=== PATIENT | male | born 1945 | race Caucasian/White ===

== ENCOUNTER 2018-02-26 12:29 | Inpatient (IN) ==
--- NOTE | 2018-02-26 12:37 | Emergency Department Note ---
Disposition Clinical Impression: TIA (transient ischemic attack) Disposition: Admitted As Inpatient Condition: Fair Time of Disposition: 15:48 General Adult HPI - General Chief complaint: ED General Medical Stated complaint: Left hand numbness Time Seen by Provider: 02/26/18 12:33 Source: patient, EMS Mode of arrival: EMS Limitations: no limitations Nursing Notes Reviewed: Yes Vital Signs Reviewed: Yes - History of Present Illness HPI Narrative: Patient states that his symptoms began around 9:30 this morning. He states he was talking to his neighbor on the phone and expressive sudden onset of left arm weakness. States he dropped the phone. He went to the [facility] who sent him here. Patient states his symptoms are resolved before he arrives here. He feels back to normal. He states he had a stroke a few years ago and was evaluated here for that. He attributes it to stress. He denies any facial numbness or droop. No leg symptoms. - Related Data Home Medications Medication Instructions Recorded Confirmed Gabapentin [Neurontin] 600 mg PO HS 03/18/16 02/26/18 Lisinopril [Zestril] 10 mg PO DAILY 03/18/16 02/26/18 Acetaminophen/Diphenhydramine 1 tab PO HS PRN 02/26/18 02/26/18 [Percogesic 325-12.5 mg Tablet] Amino Acids/Protein Supplement 1 tab PO DAILY 02/26/18 02/26/18 [Protein 2,000 mg Tablet] Aspirin Enteric Coated [Aspirin EC] 81 mg PO DAILY 02/26/18 02/26/18 Cholecalciferol (D-3) [Vitamin D] 2,000 unit PO DAILY 02/26/18 02/26/18 Cranberry 500 mg PO DAILY 02/26/18 02/26/18 Garlic [Odorless Garlic] 1,250 mg PO DAILY 02/26/18 02/26/18 [place]-3S/Dha/Epa/Fish Oil [Fish 1 cap PO DAILY 02/26/18 02/26/18 Oil 1,200 mg Softgel] Vitamin E (Dl,Tocopheryl Acet) 100 unit PO DAILY 02/26/18 02/26/18 [Vitamin E] Allergies Allergy/AdvReac Type Severity Reaction Status Date / Time Salicylates Allergy Nausea Verified 02/26/18 13:51 All systems ED: reviewed and negative except as stated. Constitutional: Denies: fever Cardiovascular: Denies: chest pain Respiratory: Denies: dyspnea Gastrointestinal: Denies: abdominal pain, vomiting, diarrhea Past Medical History - Past Medical History Attestation: Yes The following information was validated with the patient. Source: patient Medical history: Reports: hyperlipidemia, hypertension, other (west nile encephalitis) Psychiatric history: Reports: anxiety - Social History Smoking Status: Never smoker Smokeless Tobacco Status: No Alcohol use: Reports: none Drug use: Reports: none Physical Exam - General Limitations: no limitations General appearance: alert, in no apparent distress - Head Head exam: atraumatic - Eye Eye exam: Present: normal appearance - Chest Chest inspection: Present: normal inspection - Respiratory Respiratory exam: Present: normal lung sounds bilaterally - Cardiovascular Cardiovascular exam: Present: regular rate, normal rhythm, normal heart sounds - Abdominal Exam Abdominal exam: Present: soft, Non-Tender - Neurological Exam Neurological exam: Present: alert, oriented X3, CN II-XII intact - Psychiatric Psychiatric exam: Present: normal affect, normal mood - Skin Skin exam: Present: warm, dry Course Course Narrative: The patient is back to his neurologic baseline. His NIH is 0. No stroke alert was called. We will perform stroke workup and likely admit. - Reevaluation(s) Reevaluation #1: Patient reevaluated. Patientand sensory discrepancy on my evaluation. NIH 0. We will observe. Time: 15:16 - Consultations Consultation #1: Dr Rod accepts Time: 15:48 Vital Signs Temperature 98 F 02/26/18 12:31 Pulse Rate 65 02/26/18 12:31 Respiratory Rate 16 02/26/18 12:31 Blood Pressure 189/103 02/26/18 12:31 O2 Sat by Pulse Oximetry 97 02/26/18 12:31 Temperature 98 F 02/26/18 12:31 Pulse Rate 119 02/26/18 14:52 Respiratory Rate 18 02/26/18 14:52 Blood Pressure 161/87 02/26/18 14:52 O2 Sat by Pulse Oximetry 99 02/26/18 14:52 Oxygen Delivery Oxygen Delivery Room Air Medical Decision Making - MDM Narrative Medical decision making narrative: Patient with TIA. Symptoms currently resolved. Admitted to medicine. Patient TPA candidate secondary to his symptoms being gone at this time. - Medical Records Medical records reviewed: Yes I reviewed the patient's medical records. - Lab Data Lab results reviewed: Yes I reviewed the patient's lab results. Result diagrams: 02/26/18 13:27 02/26/18 13:27 Lab Results 02/26/18 02/26/18 02/26/18 Range/Units 13:27 13:27 13:27 WBC 6.1 (4.3-11.1) K/mcL RBC 5.13 (4.19-5.50) M/mcL Hgb 15.0 (12.9-16.9) g/dL Hct 46.2 (37.5-50.1) % MCV 90.1 (83.0-100.0) fL MCH 29.2 (28.0-33.3) pg MCHC 32.5 (31.6-35.5) g/dL RDW 13.6 (11.5-14.5) % Plt Count 166 (140-400) K/mcL MPV 11.0 (9.4-12.4) fL Immature Gran % 0.3 (0-4) % Seg Neutrophils % 51.9 % Lymphocytes % 36.4 % Monocytes % 8.8 % Eosinophils % 1.8 % Basophils % 0.8 % Neutrophils # 3.2 (1.6-8.9) K/mcL Lymphocytes # 2.2 (0.6-4.6) K/mcL Monocytes # 0.5 (0.0-1.3) K/mcL Eosinophils # 0.1 (0.0-0.6) K/mcL Basophils # 0.1 (0.0-0.2) K/mcL PT 11.2 (9.4-12.1) Seconds INR 1.0 APTT 29.7 (26.0-36.0) Seconds Sodium 142 (136-145) mEq/L Potassium 4.4 (3.5-5.1) mEq/L Chloride 105 (98-107) mEq/L Carbon Dioxide 30 H (23-29) mEq/L BUN 12 (8-23) mg/dL Creatinine 1.06 (0.70-1.30) mg/dL Est GFR ( Amer) > 60 (> 60) Est GFR (Non-Af Amer) > 60 (> 60) BUN/Creatinine Ratio 11 (6-26) Glucose 98 (70-105) mg/dL Calculated Osmolality 294 (280-300) Calcium 9.1 (8.6-10.3) mg/dL Troponin I < 0.03 (< 0.04) ng/mL - EKG Data EKG #1 EKG attestation: Yes I reviewed and interpreted this EKG. EKG results narrative: Normal sinus at 62. No ST segment changes or T-wave inversions. Normal QRS. Normal axis. Critical Care Time Critical Care Time: No NIH Stroke Scale - Level of Consciousness LOC: Alert - LOC Questions LOC Questions: Answers both correctly - LOC Commands LOC Commands: Performs both correctly - Best Gaze Best Gaze: Normal - Visual Visual: No visual loss - Facial Palsy Facial Palsy: Normal - Motor Arms Motor Arm-Left: No drift for 10 seconds Motor Arm-Right: No drift for 10 seconds - Motor Legs Motor Leg-Left: No drift for 5 seconds Motor Leg-Right: No drift for 5 seconds - Limb Ataxia Limb Ataxia: Absent of affected limb too weak to perform exam - Sensory Sensory: Normal - Best Language Best Language: No aphasia - Dysarthria Dysarthria: Normal - Extinction and Inattention Extinction and Inattention: Normal - NIHSS Total Score NIHSS Total Score: 0
--- NOTE | 2018-02-26 13:19 | Emergency Department Note ---
Disposition Clinical Impression: TIA (transient ischemic attack) Qualifiers: Transient cerebral ischemia type: unspecified Qualified Code(s): G45.9 - Transient cerebral ischemic attack, unspecified Disposition: Admitted As Inpatient Condition: Fair General Adult HPI - General Chief complaint: ED General Medical Stated complaint: Left hand numbness Time Seen by Provider: 02/26/18 12:33 Source: patient, EMS Mode of arrival: EMS Limitations: no limitations Nursing Notes Reviewed: Yes Vital Signs Reviewed: Yes - History of Present Illness HPI Narrative: 73-year-old male with a history of CVA in the past with no residual symptoms presents for evaluation of left hand numbness. Patient states symptom onset was around 9 or 9:30 this morning. Lasted 2 hours. Patient states that he felt his entire left arm numb and subsequently dropped his coffee. Patient also noted a generalized weakness at that time. States he had a history of similar symptoms of the right arm a year ago. Patient denies any significant prodromal symptoms. No chest pain or shortness of breath. No abdominal pain. No nausea vomiting or diaphoresis. Patient states that he subsequently went to the [facility] who transferred him here. Patient's symptoms resolved by the time he was seen at the [facility]. Patient has not had any blood thinners. Pain Scale: 0 - Related Data Home Medications Medication Instructions Recorded Confirmed Gabapentin [Neurontin] 600 mg PO HS 03/18/16 02/26/18 Lisinopril [Zestril] 10 mg PO DAILY 03/18/16 02/26/18 Acetaminophen/Diphenhydramine 1 tab PO HS PRN 02/26/18 02/26/18 [Percogesic 325-12.5 mg Tablet] Amino Acids/Protein Supplement 1 tab PO DAILY 02/26/18 02/26/18 [Protein 2,000 mg Tablet] Aspirin Enteric Coated [Aspirin EC] 81 mg PO DAILY 02/26/18 02/26/18 Cholecalciferol (D-3) [Vitamin D] 2,000 unit PO DAILY 02/26/18 02/26/18 Cranberry 500 mg PO DAILY 02/26/18 02/26/18 Garlic [Odorless Garlic] 1,250 mg PO DAILY 02/26/18 02/26/18 [place]-3S/Dha/Epa/Fish Oil [Fish 1 cap PO DAILY 02/26/18 02/26/18 Oil 1,200 mg Softgel] Vitamin E (Dl,Tocopheryl Acet) 100 unit PO DAILY 02/26/18 02/26/18 [Vitamin E] Allergies Allergy/AdvReac Type Severity Reaction Status Date / Time Salicylates Allergy Nausea Verified 02/26/18 13:51 Constitutional: Denies: fever Cardiovascular: Denies: chest pain Respiratory: Denies: dyspnea Gastrointestinal: Denies: abdominal pain, vomiting, diarrhea Past Medical History - Past Medical History Source: patient Medical history: Reports: hyperlipidemia, hypertension, other (west nile encephalitis) Psychiatric history: Reports: anxiety - Social History Smoking Status: Never smoker Smokeless Tobacco Status: No Alcohol use: Reports: none Drug use: Reports: none Physical Exam - General Limitations: no limitations General appearance: alert, in no apparent distress - Head Head exam: atraumatic, normocephalic, normal inspection - Eye Eye exam: Present: normal appearance, PERRL, EOMI. Absent: miosis, mydriasis - ENT ENT exam: normal exam, normal oropharynx, mucous membranes moist - Neck Neck exam: Present: normal inspection - Chest Chest inspection: Present: normal inspection, symmetric chest wall rise - Respiratory Respiratory exam: Present: normal lung sounds bilaterally. Absent: respiratory distress - Cardiovascular Cardiovascular exam: Present: regular rate, normal rhythm. Absent: systolic murmur - Abdominal Exam Abdominal exam: Present: soft - Extremities Exam Extremities exam: Present: normal inspection. Absent: pedal edema - Back Exam Back exam: Present: normal inspection - Neurological Exam Neurological exam: Present: alert, oriented X3, CN II-XII intact - Expanded Neurological Exam Patient oriented to: Present: person, place, time Speech: Present: fluid speech Cranial nerves: EOM function (II, III, IV, ): Normal, facial sensation (V): Normal, facial palsy (VII): Normal, spinal accessory function (XI): Normal, tongue deviation (XII): Normal Motor strength - LUE: 5/5 Motor strength - RUE: 5/5 Motor strength - LLE: 5/5 Motor strength - RLE: 5/5 Sensory exam upper extremity: light touch: Normal Sensory exam lower extremity: light touch: Normal Coma Scale Eye Opening: Spontaneous Coma Scale Motor Response: Obeys Commands Coma Scale Verbal Response: Oriented Coma Scale Total: 15 - Skin Skin exam: Present: warm, dry, intact, normal color Course Course Narrative: Patient was seen by the prior provider. - Reevaluation(s) Reevaluation #1: Patient seen and examined. Patient denies any needs at this time. Patient's NIH score of 0. Patient's resting comfortably. No needs at this time. Time: 13:19 Vital Signs Temperature 98 F 02/26/18 12:31 Pulse Rate 65 02/26/18 12:31 Respiratory Rate 16 02/26/18 12:31 Blood Pressure 189/103 02/26/18 12:31 O2 Sat by Pulse Oximetry 97 02/26/18 12:31 Temperature 98.7 F 02/26/18 18:50 Pulse Rate 65 02/26/18 18:50 Respiratory Rate 16 02/26/18 18:50 Blood Pressure 160/79 02/26/18 18:50 O2 Sat by Pulse Oximetry 97 02/26/18 18:50 Oxygen Delivery Oxygen Delivery Room Air Medical Decision Making - Lab Data Result diagrams: 02/26/18 13:27 02/26/18 13:27 Lab Results 02/26/18 02/26/18 02/26/18 Range/Units 12:40 13:27 13:27 WBC 6.1 (4.3-11.1) K/mcL RBC 5.13 (4.19-5.50) M/mcL Hgb 15.0 (12.9-16.9) g/dL Hct 46.2 (37.5-50.1) % MCV 90.1 (83.0-100.0) fL MCH 29.2 (28.0-33.3) pg MCHC 32.5 (31.6-35.5) g/dL RDW 13.6 (11.5-14.5) % Plt Count 166 (140-400) K/mcL MPV 11.0 (9.4-12.4) fL Immature Gran % 0.3 (0-4) % Seg Neutrophils % 51.9 % Lymphocytes % 36.4 % Monocytes % 8.8 % Eosinophils % 1.8 % Basophils % 0.8 % Neutrophils # 3.2 (1.6-8.9) K/mcL Lymphocytes # 2.2 (0.6-4.6) K/mcL Monocytes # 0.5 (0.0-1.3) K/mcL Eosinophils # 0.1 (0.0-0.6) K/mcL Basophils # 0.1 (0.0-0.2) K/mcL PT 11.2 (9.4-12.1) Seconds INR 1.0 APTT 29.7 (26.0-36.0) Seconds Sodium (136-145) mEq/L Potassium (3.5-5.1) mEq/L Chloride (98-107) mEq/L Carbon Dioxide (23-29) mEq/L BUN (8-23) mg/dL Creatinine (0.70-1.30) mg/dL Est GFR ( Amer) (> 60) Est GFR (Non-Af Amer) (> 60) BUN/Creatinine Ratio (6-26) Glucose (70-105) mg/dL POC Glucose 86 (70-99) mg/dL Calculated Osmolality (280-300) Calcium (8.6-10.3) mg/dL Troponin I (< 0.04) ng/mL 02/26/18 Range/Units 13:27 WBC (4.3-11.1) K/mcL RBC (4.19-5.50) M/mcL Hgb (12.9-16.9) g/dL Hct (37.5-50.1) % MCV (83.0-100.0) fL MCH (28.0-33.3) pg MCHC (31.6-35.5) g/dL RDW (11.5-14.5) % Plt Count (140-400) K/mcL MPV (9.4-12.4) fL Immature Gran % (0-4) % Seg Neutrophils % % Lymphocytes % % Monocytes % % Eosinophils % % Basophils % % Neutrophils # (1.6-8.9) K/mcL Lymphocytes # (0.6-4.6) K/mcL Monocytes # (0.0-1.3) K/mcL Eosinophils # (0.0-0.6) K/mcL Basophils # (0.0-0.2) K/mcL PT (9.4-12.1) Seconds INR APTT (26.0-36.0) Seconds Sodium 142 (136-145) mEq/L Potassium 4.4 (3.5-5.1) mEq/L Chloride 105 (98-107) mEq/L Carbon Dioxide 30 H (23-29) mEq/L BUN 12 (8-23) mg/dL Creatinine 1.06 (0.70-1.30) mg/dL Est GFR ( Amer) > 60 (> 60) Est GFR (Non-Af Amer) > 60 (> 60) BUN/Creatinine Ratio 11 (6-26) Glucose 98 (70-105) mg/dL POC Glucose (70-99) mg/dL Calculated Osmolality 294 (280-300) Calcium 9.1 (8.6-10.3) mg/dL Troponin I < 0.03 (< 0.04) ng/mL Attestation Statement - Attestation Attestation: I examined this patient and my medical decision-making was reviewed with the Resident Physician. I agree with the documented findings, disposition and treatment plan as described except to the extent set forth below.
[2018-02-26 14:07] LABS: Basophils # 0.1 K/mcL (0.0-0.2); Basophils % 0.8 %; Eosinophils # 0.1 K/mcL (0.0-0.6); Eosinophils % 1.8 %; Hematocrit 46.2 % (37.5-50.1); Immature Granulocytes % 0.3 % (0-4); Lymphocytes # 2.2 K/mcL (0.6-4.6); Lymphocytes % 36.4 %; Mean Corpuscular HGB Conc 32.5 g/dL (31.6-35.5); Mean Corpuscular Hemoglobin 29.2 pg (28.0-33.3); Mean Corpuscular Volume 90.1 fL (83.0-100.0); Monocytes # 0.5 K/mcL (0.0-1.3); Monocytes % 8.8 %; Neutrophils # 3.2 K/mcL (1.6-8.9); Platelet Count 166 K/mcL (140-400); Red Blood Count 5.13 M/mcL (4.19-5.50); Red Cell Distribution Width 13.6 % (11.5-14.5); Segmented Neutrophils % 51.9 %
[2018-02-26 14:14] LABS: Prothrombin Time 11.2 Seconds (9.4-12.1)
[2018-02-26 14:16] LABS: Activated Partial Thrombo Time 29.7 Seconds (26.0-36.0)
[2018-02-26 14:30] LABS: BUN/Creatinine Ratio 11 (6-26); Blood Urea Nitrogen 12 mg/dL (8-23); Calcium 9.1 mg/dL (8.6-10.3); Carbon Dioxide 30 mEq/L (23-29); Chloride 105 mEq/L (98-107); Glucose 98 mg/dL (70-105); Osmolality,Calculated 294 (280-300); Potassium 4.4 mEq/L (3.5-5.1); Sodium 142 mEq/L (136-145); eGFR For African Americans > 60 (> 60); eGFR For Non-African Americans > 60 (> 60)
[2018-02-26 14:31] LABS: Troponin I < 0.03 ng/mL (< 0.04)
[2018-02-26] MEDS ORDERED: Naloxone 0.4 MG/ML INJ IVP PRN (15:50)
--- NOTE | 2018-02-26 16:03 | Internal Med History&Physical ---
Date of Encounter: 02/27/18 Time of Encounter: 15:59 Internal Medicine - H&P: HPI Chief complaint: TIA to rule out CVA Admitted From: Emergency Dept Plans for Post Hospital Care: Home History of present illness: PCP: BRENDA Vaca PMH: Hypertension, Previous CVA History of present medical illness: Patient noted that this morning around 920 and has a weakness on the left sideed upper/lower extremity. Patient claims that for few minutes he was extremely dizzy and was unable to keep the balance. Patient had a occasional slurred speech. Patient denies chest pain, nausea, vomiting, abdominal pain and diarrhea. Patient went to emergency room at the [facility] in [place]. Patient was transferred to this hospital from [facility] for further evaluation and management. Workup in the emergency room: Patient was evaluated in the emergency room. Baseline labs were drawn. CT head: Negative for any acute CVA/ischemia/bleed. Chest x-ray: Negative for any acute cardiac pulmonary process. Reason for admission: TIA to rule out CVA. Family history: Noncontributory 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) Psychiatric history: anxiety - Social History Smoking Status: Never smoker Smokeless Tobacco Status: No Alcohol use: none Drug use: none Internal Medicine - H&P: Meds Gabapentin [Neurontin] 600 mg PO HS 03/18/16 [History] Lisinopril [Zestril] 10 mg PO DAILY 03/18/16 [History] Acetaminophen/Diphenhydramine [Percogesic 325-12.5 mg Tablet] 1 tab PO HS PRN [History] Amino Acids/Protein Supplement [Protein 2,000 mg Tablet] 1 tab PO DAILY [History] Aspirin Enteric Coated [Aspirin EC] 81 mg PO DAILY 02/26/18 [History] Cholecalciferol (D-3) [Vitamin D] 2,000 unit PO DAILY 02/26/18 [History] Cranberry 500 mg PO DAILY 02/26/18 [History] Garlic [Odorless Garlic] 1,250 mg PO DAILY 02/26/18 [History] [place]-3S/Dha/Epa/Fish Oil [Fish Oil 1,200 mg Softgel] 1 cap PO DAILY 02/26/18 [ History] Vitamin E (Dl,Tocopheryl Acet) [Vitamin E] 100 unit PO DAILY 02/26/18 [History] 3 Allergy/AdvReac Type Severity Reaction Status Date / Time Salicylates Allergy Nausea Verified 02/26/18 13:51 All Systems PM: A 10-system review of systems was performed and is negative for pertinent findings except as documented above in the HPI. - Constitutional Constitutional: no chills, no fever(s), no night sweats - EENT Eyes: no change in vision, no discharge, no pain, no photophobia Ears: no ear discharge, no ear pain, no tinnitus Nose, mouth and throat: no dysphagia, no nasal discharge, no neck pain, no sore throat - Cardiovascular Cardiovascular ROS IM: no chest pain, no diaphoresis, no dyspnea, no lightheadedness, no palpitations, no syncope - Respiratory Respiratory: no cough, no dyspnea, no wheezing, no excessive phlegm production - Gastrointestinal Gastrointestinal: no abdominal pain, no diarrhea, no hematemesis, no hematochezia, no melena, no nausea, no vomiting - Musculoskeletal Musculoskeletal ROS IM: no numbness, no tingling - Integumentary Integumentary IM: no rash, no unusual bruising - Neurological Neurological ROS: dizziness, focal weakness, numbness, no confusion, no convulsions, no tingling, no tremor(s) - Hematologic/Lymphatic Hematologic/Lymphatic: no easy bruising - Constitutional Vitals: Temp Pulse Resp BP Pulse Ox 98 F 119 18 161/87 99 02/26/18 12:31 02/26/18 14:52 02/26/18 14:52 02/26/18 14:52 02/26/18 14:52 General appearance: Present: A&O X 3, pleasant, no acute distress, answers questions appropriately - Head Head exam: Present: atraumatic, normocephalic - Eye Eye exam: Present: PERRL, conjuntiva pink, sclera anicteric Pupils: Present: PERRL - Neck Neck exam general surgery: Present: supple, trachea midline. Absent: lymphadenopathy - Respiratory Respiratory exam: Present: CTAB. Absent: accessory muscle use, rales, rhonchi, wheezes - Cardiovascular Cardiovascular exam: Present: RRR, +S1, +S2. Absent: diastolic murmur, gallop, rubs, systolic murmur - GI/Abdominal GI/Abdominal exam: Present: normal bowel sounds, soft, no peritoneal signs. Absent: distended, tenderness - Extremities Exam Extremities exam: Present: warm, radial pulses palpable and symmetrical. Absent : calf tenderness, cyanotic, pedal edema - Neurological Exam Neurological exam: Present: CN II-XII intact, oriented X3, no focal deficits. Absent: pronater drift, facial droop, speech deficit - Skin Skin exam: Present: dry, intact Internal Med - H&P Results - Labs CBC & Chem 7: 02/27/18 06:02 02/27/18 06:02 - Assessment and plan (1) TIA (transient ischemic attack) Current Visit: Yes Status: Acute Assessment and plan: 73/male Multiple risk factors. Admitted with left-sided weakness of breath upper and lower extremity. Patient had a slurred speech. Patient was evaluated by Lorenzo GUTIERREZ. Next line transferred to the hospital for further management. Assessment: TIA to rule out CVA. Hypertension. Plan: Admit as inpatient. Monitoring as per [place]. Aspirin/statin. Echocardiogram/ultrasound carotid. Physical therapy/occupational therapy evaluation. I personally give patient water to drink and he did not have any concern in terms of regurgitation. Close monitoring of the patient I examined this patient in the emergency room #2. Plan of care discussed with the patient. Patient verbalized understanding. Qualifiers: Transient cerebral ischemia type: unspecified Qualified Code(s): G45.9 - Transient cerebral ischemic attack, unspecified (2) Essential hypertension, benign Current Visit: No Status: Chronic Assessment and plan: Patient is known to have a essential hypertension. At this point patient's blood pressure is mildly elevated but that can be secondary to possible TIA/CVA. We will resume home medication for now. Her medication dose is due for tomorrow morning (3) DVT prophylaxis Current Visit: Yes Status: Acute Assessment and plan: Heparin Medical decision making: This patient has a moderate to severe risk of worsening in spite of being on appropriate medication/treatment due to the underlying complex medical condition. - Time Spent With Patient Total time spent is greater than 50% in coordination of care (as documented) at patient's floor/unit and/or counseling patient:
[2018-02-26] MEDS: *HR* Heparin 5,000 UNIT/ML VIAL SQ SCH ×2 (18:20→23:30)
[2018-02-26] MEDS: Gabapentin 300 MG CAPSULE PO SCH (20:10)
[2018-02-27] MEDS: Acetaminophen 325 MG TABLET PO PRN ×2 (00:42→22:21)
[2018-02-27 06:40] LABS: Basophils # 0.1 K/mcL (0.0-0.2); Basophils % 0.8 %; Eosinophils # 0.1 K/mcL (0.0-0.6); Eosinophils % 1.9 %; Hematocrit 42.7 % (37.5-50.1); Hemoglobin 14.1 g/dL (12.9-16.9); Immature Granulocytes % 0.2 % (0-4); Lymphocytes # 2.4 K/mcL (0.6-4.6); Lymphocytes % 38.2 %; Mean Corpuscular Hemoglobin 29.1 pg (28.0-33.3); Mean Platelet Volume 10.8 fL (9.4-12.4); Monocytes # 0.6 K/mcL (0.0-1.3); Monocytes % 8.8 %; Neutrophils # 3.1 K/mcL (1.6-8.9); Platelet Count 153 K/mcL (140-400); Red Blood Count 4.85 M/mcL (4.19-5.50); Red Cell Distribution Width 13.9 % (11.5-14.5); Segmented Neutrophils % 50.1 %
[2018-02-27 06:43] LABS: INR 1.1; Prothrombin Time 11.9 Seconds (9.4-12.1)
[2018-02-27 06:46] LABS: Activated Partial Thrombo Time 29.2 Seconds (26.0-36.0)
[2018-02-27 06:55] LABS: Troponin I < 0.03 ng/mL (< 0.04)
[2018-02-27 06:56] LABS: Alanine Aminotransferase 7 Units/L (7-52); Albumin 3.8 g/dL (3.5-5.7); Albumin/Globulin Ratio 1.8 (1.1-2.2); Alkaline Phosphatase 47 Units/L (34-104); Aspartate Amino Transferase 10 Units/L (13-39); BUN/Creatinine Ratio 14 (6-26); Bilirubin,Total 0.8 mg/dL (0.3-1.0); Blood Urea Nitrogen 15 mg/dL (8-23); Calcium 8.9 mg/dL (8.6-10.3); Carbon Dioxide 27 mEq/L (23-29); Chloride 108 mEq/L (98-107); Chol/HDL Ratio 3.6 (0-4.9); Cholesterol 168 mg/dL (< 200); Globulin 2.1 g/dL (2.4-3.5); Glucose 90 mg/dL (70-105); HDL Cholesterol 47 mg/dL (40-59); LDL Cholesterol,Calculated 106 mg/dL (0-99); Magnesium 1.9 mg/dL (1.6-2.6); Osmolality,Calculated 294 (280-300); Phosphorous 3.3 mg/dL (2.7-4.5); Potassium 4.2 mEq/L (3.5-5.1); Sodium 142 mEq/L (136-145); Total Protein 5.9 g/dL (6.4-8.9); Triglycerides 75 mg/dL (< 150); eGFR For African Americans > 60 (> 60); eGFR For Non-African Americans > 60 (> 60)
[2018-02-27] MEDS: *HR* Heparin 5,000 UNIT/ML VIAL SQ SCH ×3 (08:19→22:24)
[2018-02-27] MEDS: Aspirin Enteric Coated 81 MG Tablet PO SCH (08:19)
[2018-02-27] MEDS: Cholecalciferol (D-3) 1,000 UNIT TABLET PO SCH (08:19)
--- NOTE | 2018-02-27 12:22 | Electrocardiograph Report ---
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
--- NOTE | 2018-02-27 14:55 | Internal Med Progress Note ---
Date of Encounter: 02/27/18 Time of Encounter: 14:42 - Assessment and plan (1) TIA (transient ischemic attack) Current Visit: Yes Status: Acute Assessment and plan: suspected. Presented with left arm weakness which is now resolved. 02/2016 brain MRI with evidence of small petechial hemorrhage. Patient reports history of TIAs in the past. Head CT nonacute. TTE with EF 60%, no valvular dysfunction, no evidence of PFO. Bilateral carotid Dopplers with 60-79% stenosis of the right and left ICA.. Brain MRI pending. Continue home ASA, statin. Qualifiers: Transient cerebral ischemia type: unspecified Qualified Code(s): G45.9 - Transient cerebral ischemic attack, unspecified (2) Essential hypertension, benign Current Visit: No Status: Chronic Assessment and plan: per hx. BP controlled. Cont home BP medication. Monitor BP and titrate PRN (3) Carotid stenosis Current Visit: Yes Status: Acute Assessment and plan: Bilateral carotid dopplers with 60-79% stenosis on both the right and left ICA. Cont ASA, statin. Follow up with Vascular outpatient Qualifiers: Laterality: bilateral Qualified Code(s): I65.23 - Occlusion and stenosis of bilateral carotid arteries (4) DVT prophylaxis Current Visit: Yes Status: Acute Assessment and plan: Heparin - Time Spent With Patient Total time spent is greater than 50% in coordination of care (as documented) at patient's floor/unit and/or counseling patient: - Subjective Interval history: Seen and examined at bedside. Patient is new to me, information obtained from chart review and patient report. Says he is back to baseline and once to discharge home today. No further left - Constitutional Vitals: Temp Pulse Resp BP Pulse Ox 98.5 F 68 14 155/75 98 02/27/18 11:34 02/27/18 11:34 02/27/18 11:34 02/27/18 11:34 02/27/18 11:34 General appearance: Present: A&O X 3, pleasant, no acute distress, answers questions appropriately - Head Head exam: Present: atraumatic, normocephalic - Eye Eye exam: Present: PERRL, conjuntiva pink, sclera anicteric Pupils: Present: PERRL - Neck Neck exam general surgery: Present: supple, trachea midline. Absent: lymphadenopathy - Respiratory Respiratory exam: Present: CTAB. Absent: accessory muscle use, rales, rhonchi, wheezes - Cardiovascular Cardiovascular exam: Present: RRR, +S1, +S2. Absent: diastolic murmur, gallop, rubs, systolic murmur - GI/Abdominal GI/Abdominal exam: Present: normal bowel sounds, soft, no peritoneal signs. Absent: distended, tenderness - Extremities Exam Extremities exam: Present: warm, radial pulses palpable and symmetrical. Absent : calf tenderness, cyanotic, pedal edema - Neurological Exam Neurological exam: Present: CN II-XII intact, oriented X3, no focal deficits. Absent: pronater drift, facial droop, speech deficit - Skin Skin exam: Present: dry, intact Internal Medicine: Result - Labs CBC & Chem 7: 02/27/18 06:02 02/27/18 06:02 Labs: Short CBC 02/27/18 Range/Units 06:02 WBC 6.2 (4.3-11.1) K/mcL Hgb 14.1 (12.9-16.9) g/dL Hct 42.7 (37.5-50.1) % Plt Count 153 (140-400) K/mcL Neutrophils # 3.1 (1.6-8.9) K/mcL BMP 02/27/18 06:02 Sodium 142 Potassium 4.2 Chloride 108 H Carbon Dioxide 27 BUN 15 Creatinine 1.07 Glucose 90 Calcium 8.9 Cardiac Enzymes 02/26/18 02/26/18 02/27/18 Range/Units 16:55 21:41 06:02 Troponin I < 0.03 < 0.03 < 0.03 (< 0.04) ng/mL Liver Function 02/27/18 Range/Units 06:02 Total Bilirubin 0.8 (0.3-1.0) mg/dL AST 10 L (13-39) Units/L ALT 7 (7-52) Units/L Alkaline Phosphatase 47 (34-104) Units/L Albumin 3.8 (3.5-5.7) g/dL - ABG Interpretation ABG results: PT/INR, D-dimer PT 11.9 Seconds (9.4-12.1) 02/27/18 06:02 - Impressions Impressions Echocardiogram 02/27/18 15:56 Impressions: LVEF 60-65%. Mild concentric left ventricular hypertrophy. Indeterminate diastolic function. Normal right ventricular structure and function. No significant valvular dysfunction. No evidence of PFO with agitated saline contrast. Left Ventricular Wall Motion: Rest Echo Findings All wall segments showed normal motion. Findings: Study Quality * Technically adequate exam. ECG Findings * Normal sinus rhythm. Left Ventricle * LVEF 60-65%. * Mild concentric left ventricular hypertrophy. * Indeterminate diastolic function. Right Ventricle * Normal right ventricular structure and function. Left Atrium * Normal left atrial size. Right Atrium * Normal right atrial size. Mitral Valve * Normal mitral valve structure. * No mitral stenosis. * Mild mitral annular calcification * Trace mitral regurgitation. Aortic Valve * No aortic regurgitation. * Aortic valve not well visualized. * No aortic stenosis. Tricuspid Valve * Tricuspid valve not well visualized. * No tricuspid regurgitation. Pulmonic Valve * Pulmonic valve is not well visualized. * No pulmonic stenosis. * Trace pulmonic regurgitation. Pulmonary Artery * Pulmonary artery not well visualized. Aorta * Normally sized aortic root. Pericardium * There is no pericardial effusion present. Interatrial Septum * No evidence of PFO by color Doppler. * No evidence of PFO with agitated saline contrast. IVC * The IVC is not dilated. Consult Discharge Plan - Plan [facility]errals: [facility] [Primary Care Provider[facility] -
[2018-02-27] MEDS: Gabapentin 300 MG CAPSULE PO SCH (20:11)
--- NOTE | 2018-02-27 23:16 | Event Note ---
Date of Encounter: 02/27/18 Time of Encounter: 23:13 Ct of the head showed acute micro infarcts in the frontal lobe. The patient is + for CVA. Continue ASA and statin daily. Hydralazine prn added for hypertension ,
[2018-02-28] MEDS: Cholecalciferol (D-3) 1,000 UNIT TABLET PO SCH (08:39)
[2018-02-28] MEDS: *HR* Heparin 5,000 UNIT/ML VIAL SQ SCH (08:39)
[2018-02-28] MEDS: Aspirin Enteric Coated 81 MG Tablet PO SCH (08:39)
--- NOTE | 2018-02-28 10:00 | Neurology - Consult Note ---
Date of Encounter: 02/28/18 Time of Encounter: 11:22 Assessment and Plan (1) CVA (cerebral vascular accident) Current Visit: Yes Status: Acute Patient's neurological examination shows diminished strength in the left biceps , triceps (4/5) otherwise it is nonfocal, nonlateralizing. MRI shows multiple acute microinfarcts in the right frontal lobe Echocardiogram shows EF of 60-60% with no wall motion or valvular abnormalities. Absent PFO Carotid duplex shows 60-79% stenosis in bilateral internal carotid arteries as per preliminary report. Plan: Patient's CVA is likely embolic versus thromboembolic in origin. Etiology can be right internal carotid artery, cardiac. Patient will be started on Plavix. Continue aspirin and statin. We will obtain a CTA of the head and neck. If CTA shows significant stenosis in internal carotid arteries will consult vascular surgery. If CTA head and neck shows nonsignificant stenosis in the carotid arteries will obtain a GARRETT. Qualifiers: CVA mechanism: embolism Precerebral and cerebral artery: middle cerebral artery Laterality of affected vessel: right Qualified Code(s): I63.411 - Cerebral infarction due to embolism of right middle cerebral artery History of Present Illness Chief complaint: Left upper extremity weakness HPI: Mr. Richardson is a 73 year old male history of hyperlipidemia, hypertension, previous CVA presented with chief complaint of left upper extremity weakness. Patient was about to talk on the phone yesterday morning at 9:20 AM when his left upper extremity went limp. At that time he reported not having slurred speech, numbness, tingling, headache, double vision, blurry vision, difficulty in hearing, difficulty swallowing. Patient was able to get up and go to his car and drove herself to the [facility]. Due to concern of CVA patient was transferred to [facility] for further evaluation. He reports his previous CVA was in June 2017 affected his right upper extremity but he does not have any residual deficits. CT of the head was negative for bleed, acute infarct. This morning during my evaluation patient is awake, alert and oriented 3 and is able to ambulate independently, tolerating his diet. He reports he is back to normal. He does not appear to have any speech difficulty. 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) Psychiatric history: anxiety - Past Surgical History Surgical History: no surgical history - Social History Smoking Status: Never smoker Smokeless Tobacco Status: No Alcohol use: none Drug use: none - Family History Mother History Unknown: Yes Age at : 90 Cause of : elderly Medications and Allergies Gabapentin [Neurontin] 600 mg PO HS 03/18/16 [History] Lisinopril [Zestril] 10 mg PO DAILY 03/18/16 [History] Acetaminophen/Diphenhydramine [Percogesic 325-12.5 mg Tablet] 1 tab PO HS PRN [History] Amino Acids/Protein Supplement [Protein 2,000 mg Tablet] 1 tab PO DAILY [History] Aspirin Enteric Coated [Aspirin EC] 81 mg PO DAILY 02/26/18 [History] Cholecalciferol (D-3) [Vitamin D] 2,000 unit PO DAILY 02/26/18 [History] Cranberry 500 mg PO DAILY 02/26/18 [History] Garlic [Odorless Garlic] 1,250 mg PO DAILY 02/26/18 [History] [place]-3S/Dha/Epa/Fish Oil [Fish Oil 1,200 mg Softgel] 1 cap PO DAILY 02/26/18 [ History] Vitamin E (Dl,Tocopheryl Acet) [Vitamin E] 100 unit PO DAILY 02/26/18 [History] 3 Allergy/AdvReac Type Severity Reaction Status Date / Time Salicylates Allergy Nausea Verified 02/26/18 13:51 All Systems: The remainder of the systems were reviewed and are negative Review of Systems: Constitutional: Denies fever, chills HEENT: Denies headache, vision changes, neck pain, sore throat, rhinorrhea Heart: Denies chest pain palpitations Lungs: Denies shortness of breath cough Abdomen: Denies abdominal pain nausea vomiting diarrhea Back: Denies back pain Kidney: Denies dysuria, hematuria Skin: Denies rash Extremities: Denies swelling, pain Neuro: Denies numbness, and tingling Physical Examination - Vital Signs Vital Signs: Initial Vital Signs Temp Pulse Resp BP Pulse Ox 98 F 65 16 189/103 97 02/26/18 12:31 02/26/18 12:31 02/26/18 12:31 02/26/18 12:31 02/26/18 12:31 - Exam Exam: General: without distress HEENT: Head atraumatic, normocephalic, EOMI, PERRL, neck nontender to palpation , absent lymphadenopathy, Moist Mucous Membranes, Heart: Regular rate and rhythm with no murmur Lungs: Clear to auscultation bilaterally Abdomen: Soft nontender, nondistended positive bowel sounds Skin: warm and dry, absent rash Extremities: Absent pedal edema Vascular: Pedal and radial pulses 2 out of 4 - Neurologic Sensorimotor examination: intact Detailed motor examination: full strength in all major muscle groups Motor examination - right side: 5/5: deltoids, biceps, triceps, wrist flexion, wrist extension, machine cutter, hip flexors, tibialis Anterior, quadriceps, toe extension (EHL), plantarflexion Motor examination - left side: 4/5: biceps, triceps, 5/5: deltoids, wrist flexion, wrist extension, hip flexors, machine cutter, quadriceps, tibialis Anterior, toe extension (EHL), plantarflexion Detailed sensory examination: intact Reflex and gait examination: intact Reflexes: Biceps: 2+, Triceps: 2+, Brachioradialis: 2+, Patella: 2+, Achilles: 2 + Mental Status Examination: awake, alert, oriented to person, oriented to place, oriented to time, follows commands appropriately, answers questions appropriately, no agnosia, no aphasia, no aproxia Cranial nerve examination: PERRL, EOMI, visual yap intact, corneal reflexes brisk symmetrically, sensory to face intact, mastication intact, no facial asymmetry is present, no dysarthria, hearing is intact symmetrically, soft palate elevates bilaterally upon phonation, gag reflex intact, flexes SCM and trapezius muscles symmetrically with full power, tongue protrudes midline, no atrophy or facial fasiculations present Cerebellar examination: no dysmetria, performs finger to nose and heel to sanchez symmetrically without ataxia, no gait ataxia, no truncal ataxia, no difficulty with rapid alternating movements Results - Laboratory Findings CBC and BMP: 02/27/18 06:02 02/27/18 06:02 Abnormal lab findings: Abnormal lab results Chloride 108 mEq/L (98-107) H 02/27/18 06:02 AST 10 Units/L (13-39) L 02/27/18 06:02 Serum Total Protein 5.9 g/dL (6.4-8.9) L 02/27/18 06:02 Globulin 2.1 g/dL (2.4-3.5) L 02/27/18 06:02 LDL Cholesterol, Calc 106 mg/dL (0-99) H 02/27/18 06:02 Consult Discharge Plan - Plan Referrals: Bart Rodriguez MD [Partnered Physician] - 03/04/18 1:00 pm (Arrive 15 minutes prior to appointment to fill out paperwork.) [facility] Care Provider[facility] -
[2018-02-28] MEDS ORDERED: Isovue-370 500 ML INFUS..BTL IV ONE (11:20)
[2018-02-28 11:39] VITALS: BP 165/84
--- NOTE | 2018-02-28 15:13 | Discharge Summary ---
Date of Encounter: 02/28/18 Time of Encounter: 15:08 - Discharge Diagnosis (1) CVA (cerebral vascular accident) Priority: Primary Status: Acute Assessment and Plan: presented with left arm weakness which is now resolved. 02/2016 brain MRI with evidence of small petechial hemorrhage. Patient reports history of TIAs in the past. Head CT non-acute. Brain MRI showed multiple acute microinfarcts in the right frontal lobe. TTE with EF 60%, no valvular dysfunction, no evidence of PFO. Bilateral carotid Dopplers with 60-79% stenosis of the right and left ICA (see below). Evaluated by neurology who added Plavix. Back to baseline at time of discharge. Continue ASA, Plavix, statin. Qualifiers: CVA mechanism: embolism Precerebral and cerebral artery: middle cerebral artery Laterality of affected vessel: right Qualified Code(s): I63.411 - Cerebral infarction due to embolism of right middle cerebral artery (2) Carotid stenosis Priority: Primary Status: Acute Assessment and Plan: Bilateral carotid dopplers with 60-79% stenosis on both the right and left ICA. Head/neck CTA with 80% stenosis of the proximal right ICA, 70% stenosis of the proximal left ICA and occluded left vertebral artery origin and tenderness likely chronic with partial collateral. Evaluated by Vascular Surgery who recommended continuing medical management for now. Follow-up with Vasclar surgery outpatient on 03/04/2018. Continue ASA, Plavix, statin. Qualifiers: Laterality: bilateral Qualified Code(s): I65.23 - Occlusion and stenosis of bilateral carotid arteries (3) Essential hypertension, benign Priority: Primary Status: Chronic Assessment and Plan: per hx. BP slightly elevated but overall acceptable with severe carotid stenosis. Continue home BP medication. Recommend follow-up with PCP within one week for BP recheck. Hospital course: Please see assessment and plan for hospital course Discharge discussed with: patient (Seen and examined at bedside. Patient is frustrated and wants to leave. He is threatening to leave AGAINST MEDICAL ADVICE. States he is back to his normal self and does not need to stay any longer. Discussed case with Dr. Freeman who will see patient before he leaves. Was evaluated by neurology who recommended adding Plavix ASA. Denies blurred vision, double vision, no paresthesias.) - Time Spent with Patient Total time spent providing and/or coordinating discharge services: Less than 30 minutes - Discharge Medications Prescriptions: Aspirin Enteric Coated [Aspirin EC] 81 mg PO DAILY #30 tablet. Atorvastatin [Lipitor] 20 mg PO HS #30 tablet Clopidogrel [Plavix] 75 mg PO DAILY #30 tablet Home Medications: Gabapentin [Neurontin] 600 mg PO HS 03/18/16 [History] Lisinopril [Zestril] 10 mg PO DAILY 03/18/16 [History] Acetaminophen/Diphenhydramine [Percogesic 325-12.5 mg Tablet] 1 tab PO HS PRN [History] Amino Acids/Protein Supplement [Protein 2,000 mg Tablet] 1 tab PO DAILY [History] Cholecalciferol (D-3) [Vitamin D] 2,000 unit PO DAILY 02/26/18 [History] Cranberry 500 mg PO DAILY 02/26/18 [History] Garlic [Odorless Garlic] 1,250 mg PO DAILY 02/26/18 [History] [place]-3S/Dha/Epa/Fish Oil [Fish Oil 1,200 mg Softgel] 1 cap PO DAILY 02/26/18 [ History] Vitamin E (Dl,Tocopheryl Acet) [Vitamin E] 100 unit PO DAILY 02/26/18 [History] Aspirin Enteric Coated [Aspirin EC] 81 mg PO DAILY #30 tablet. 02/28/18 [Rx] Atorvastatin [Lipitor] 20 mg PO HS #30 tablet 02/28/18 [Rx] Clopidogrel [Plavix] 75 mg PO DAILY #30 tablet 02/28/18 [Rx] Allergies/Adverse Reactions: 3 Allergy/AdvReac Type Severity Reaction Status Date / Time Salicylates Allergy Nausea Verified 02/26/18 13:51 Date of admission: 02/26/18 15:39 [facility] care physician: [facility] Consults: 02/27/18 10:31 Consult to Investigative Research Specialist [CONS] Routine Reason for SW Consult: transport 02/28/18 09:23 Consult to Neurology [CONS] Routine Consulting Provider: Neurology [facility] Reason for Consult: acute CVA Call Completed: Yes Discharging clinician: Bernarda Cedeno Anticipated date of discharge: 02/28/18 - Constitutional Vitals: Temp Pulse Resp BP Pulse Ox 98.1 F 78 14 165/84 97 02/28/18 11:38 02/28/18 11:38 02/28/18 11:38 02/28/18 11:38 02/28/18 11:38 General appearance: Present: A&O X 3, pleasant, no acute distress, answers questions appropriately - Head Head exam: Present: atraumatic, normocephalic - Eye Eye exam: Present: PERRL, conjuntiva pink, sclera anicteric Pupils: Present: PERRL - Neck Neck exam general surgery: Present: supple, trachea midline. Absent: lymphadenopathy - Respiratory Respiratory exam: Present: CTAB. Absent: accessory muscle use, rales, rhonchi, wheezes - Cardiovascular Cardiovascular exam: Present: RRR, +S1, +S2. Absent: diastolic murmur, gallop, rubs, systolic murmur - GI/Abdominal GI/Abdominal exam: Present: normal bowel sounds, soft, no peritoneal signs. Absent: distended, tenderness - Extremities Exam Extremities exam: Present: warm, radial pulses palpable and symmetrical. Absent : calf tenderness, cyanotic, pedal edema - Neurological Exam Neurological exam: Present: CN II-XII intact, oriented X3, no focal deficits. Absent: pronater drift, facial droop, speech deficit - Skin Skin exam: Present: dry, intact - Patient Status Disposition: Home, Self-Care Condition: Good Functional capacity at discharge: independent ambulation Overall status at discharge: patient is back to baseline - Discharge Instructions Instructions: Clopidogrel (By mouth), Carotid Artery Disease (DC), Peripheral Vascular Disorders (DC), Ischemic Stroke (DC), Ischemic Stroke (GEN), Self Care Measures After a Stroke (DC), Self Care Measures After a Stroke (GEN) Follow Up With: Bart Rodriguez MD [Partnered Physician] - 03/04/18 1:00 pm (Arrive 15 minutes prior to appointment to fill out paperwork.) [facility]Primary Care Provider[facility] - (Please call for follow-up appt within 3-5 days) - Diet and Activity Activity: increase activity as tolerated Diet: low fat, low cholesterol
--- NOTE | 2018-02-28 16:28 | Vascular/Endovasc Consult Note ---
Date of Encounter: 02/28/18 Time of Encounter: 15:15 Assessment and Plan (1) Carotid stenosis Status: Chronic The pathophysiology and natural history of carotid stenosis was discussed the patient on questions were answered. The patient has a symptomatic 80-99% stenosis on the right and a 70% asymptomatic stenosis on the left. His left vertebral artery is occluded. He has sustained a recent right hemispheric cerebral vascular accident. He denies any residual or recurrent symptoms. He will be discharged on aspirin and Plavix. He will follow-up in vascular clinic for further evaluation. A right carotid endarterectomy is recommended. The risks benefits and alternatives were discussed and all questions were answered. The patient expressed understanding and wishes to proceed. The patient was instructed to seek immediate medical attention for recurrent symptoms. Qualifiers: Laterality: bilateral Qualified Code(s): I65.23 - Occlusion and stenosis of bilateral carotid arteries (2) CVA (cerebral vascular accident) Status: Acute Qualifiers: CVA mechanism: embolism Precerebral and cerebral artery: middle cerebral artery Laterality of affected vessel: right Qualified Code(s): I63.411 - Cerebral infarction due to embolism of right middle cerebral artery (3) Mixed hyperlipidemia Status: Chronic The patient was counseled regarding atherosclerotic risk factor reduction. (4) Essential hypertension, benign Status: Chronic - History of Present Illness Consult date: 02/28/18 Requesting physician: Bernarda Cedeno Consult reason: Carotid stenosis, cerebrovascular accident Chief complaint: Left arm weakness and paresthesias History of present illness: Mr. Richardson is a 73 year old male with a history of hypertension and hyperlipidemia who presented to the [facility] with complaints of an episode of left arm weakness and numbness. He reports that it resolves spontaneously. He also reports dizziness and gait instability. He was transferred to [facility]. He was admitted and a carotid duplex revealed significant stenosis. He underwent MRI which revealed a cerebrovascular accident that was acute in nature. He denied any further episodes since admission. Vascular surgery was counseled for further evaluation. He denies chest pain or shortness of breath. 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) Psychiatric history: anxiety - Past Surgical History Surgical History: no surgical history - Social History Smoking Status: Never smoker Smokeless Tobacco Status: No Alcohol use: none Drug use: none - Family History Mother History Unknown: Yes Age at : 90 Cause of : elderly Father Hx Family Endocrine Disorder: Yes (hypertension) Medications and Allergies Gabapentin [Neurontin] 600 mg PO HS 03/18/16 [History] Lisinopril [Zestril] 10 mg PO DAILY 03/18/16 [History] Acetaminophen/Diphenhydramine [Percogesic 325-12.5 mg Tablet] 1 tab PO HS PRN [History] Amino Acids/Protein Supplement [Protein 2,000 mg Tablet] 1 tab PO DAILY [History] Cholecalciferol (D-3) [Vitamin D] 2,000 unit PO DAILY 02/26/18 [History] Cranberry 500 mg PO DAILY 02/26/18 [History] Garlic [Odorless Garlic] 1,250 mg PO DAILY 02/26/18 [History] [place]-3S/Dha/Epa/Fish Oil [Fish Oil 1,200 mg Softgel] 1 cap PO DAILY 02/26/18 [ History] Vitamin E (Dl,Tocopheryl Acet) [Vitamin E] 100 unit PO DAILY 02/26/18 [History] Aspirin Enteric Coated [Aspirin EC] 81 mg PO DAILY #30 tablet. 02/28/18 [Rx] Atorvastatin [Lipitor] 20 mg PO HS #30 tablet 02/28/18 [Rx] Clopidogrel [Plavix] 75 mg PO DAILY #30 tablet 02/28/18 [Rx] 3 Allergy/AdvReac Type Severity Reaction Status Date / Time Salicylates Allergy Nausea Verified 02/26/18 13:51 All Systems Review: The remainder of the systems were reviewed and are negative - Constitutional Constitutional: no chills, no fatigue, no fever(s), no headache(s) - Cardiovascular Cardiovascular: no chest pain at rest, no chest pain with exertion, no dyspnea at rest, no dyspnea on exertion Exam General: Present: Conversant, No Apparent Distress HEENT: Present: Pupils equal Neck: Present: Left Carotid bruit, Right Carotid bruit. Absent: JVD, Lymphadenopathy Cardiac: Present: Reg Rate and Rhythm, Normal S1 and S2, No Murmur Lungs: Present: Normal Breath Sounds, No Wheeze, Rales, Rhonchi Neuro: Present: Alert and responsive, No focal deficits noted, Cranial nerves grossly intact, Motor nerves grossly intact, Sensory nerves grossly intact Abdomen: Present: Soft, Non-tender. Absent: Masses Vascular: Present: Normal capillary refill, Pulse, normal. Absent: Cyanosis, Edema Skin: Present: No rashes noted on visualized skin Consult Discharge Plan - Plan Instructions: Clopidogrel (By mouth), Carotid Artery Disease (DC), Peripheral Vascular Disorders (DC), Ischemic Stroke (DC), Ischemic Stroke (GEN), Self Care Measures After a Stroke (DC), Self Care Measures After a Stroke (GEN) Referrals: Bart Rodriguez MD [Partnered Physician] - 03/04/18 1:00 pm (Arrive 15 minutes prior to appointment to fill out paperwork.) [facility] [Primary Care Provider] - (Please call for follow-up appt within 3-5 days) Prescriptions: Aspirin Enteric Coated [Aspirin EC] 81 mg PO DAILY #30 tablet. Atorvastatin [Lipitor] 20 mg PO HS #30 tablet Clopidogrel [Plavix] 75 mg PO DAILY #30 tablet
== END 2018-02-28 16:03 | disposition home or self-care (01) | DRG 66 ==
LOC: EMEROO 12:29 → 3BNU 15:39
PROVIDERS: ADMIT Internal Medicine; ATTEND Internal Medicine